=== PATIENT | female | born 1965 | race Caucasian/White ===

== ENCOUNTER → 2017-01-28 | Outpatient (CLI) | payer OTHER ==
[~2017-01-28] MED LIST: ALENDRONATE SOD70 MG PO; ASPIR-TRIN325 MG PO; ASPIRIN81 MG PO; CALCIUM 600 + D1 TA1 PO; DOCUSATE SODIU100 MG PO; GLUCOPHAGE500 MG PO; GLUCOPHAGE850 MG; GLUCOTROL PO; GLUCOTROL XL PO; GLUCOTROL10 MG PO; LANSOPRAZOLE30 M2 PO; LISINOPRIL10 MG; LISINOPRIL10 MG PO; LORTAB 5/500 TA1 TA2 PO; METOPROLOL TAR25 MG; METOPROLOL TAR25 MG PO; METOPROLOL TART25 MG PO; SIMVASTATIN10 MG PO; SIMVASTATIN20 MG PO; WELCHOL625 M1 PO; ZESTRIL40 MG PO; ZOCOR20 MG
--- NOTE | ~2017-01-28 | CR230 ---
[facility] A Service of [facility] & [facility] RADIOLOGY TEXT RESULTS PATIENT: MIRNA PASCUAL LOCATION: [facility] : 63 UNIT #: [id number] AGE: [address]: JUNIOR GRACIA MD SEX: F ORDER DR: [id number] [place], [place] [address] [id number] O MR#: [id number] Acc #: [id number] NAME: MIRNA PASCUAL : 1965 SEX: F STUDY DATE/TIME: 01/28/2017 13:21 UNIT: [facility] ROOM: STUDY DESCRIPTION: CR Shoulder Min 2 View Rt Attending Physician: Junior Gracia M.D. Referring Physician: Junior Gracia M.D. Ordering Physician: Junior Gracia M.D. Primary Care Physician: Junior Gracia M.D. MEDICAL IMAGING REPORT This report is preliminary unless electronic signature is present EXAM Right shoulder, 01/28/2017 INDICATION 51-year-old female with shoulder pain for a couple of months. No known injury. TECHNIQUE 2 views of the right shoulder COMPARISON No comparisons FINDINGS There is mild degenerative change of the AC joint. No acute fracture, shoulder separation or dislocation. Granulomatous calcifications in the right lung. IMPRESSION Mild degenerative change of the AC joint. Otherwise negative. Dictated by... Grover Durand M.D. THIS IS AN ELECTRONICALLY VERIFIED REPORT Grover Durand M.D. at 01/29/2017 10:23 AM Aleksandr TD: 01/29/2017 08:16 JOB #: [id number] MEDICAL IMAGING REPORT COPY
== END | disposition home or self-care (01) ==
LOC: CRAD 12:48
DX: M25.511 Pain in right shoulder (principal); M19.011 Primary osteoarthritis, right shoulder
CPT/HCPCS: 73030